=== PATIENT | female | born 1965 | race Hispanic/Latino ===

== ENCOUNTER 2017-06-26 08:25 | Outpatient (CLI) | payer BC ==
--- NOTE | 2017-06-26 14:24 | Mammography Report ---
BILATERAL DIGITAL SCREENING MAMMOGRAM WITH CAD:06/26/17 CLINICAL: Baseline screening. COMPARISON:None. FINDINGS: The breasts are heterogeneously dense, which may obscure small masses. Bilateral circumscribed masses are suggestive of cysts and require additional evaluation. A few bilateral benign calcifications.No architectural distortion or suspicious calcifications. IMPRESSION: Bilateral circumscribed masses requiring further workup. BI-RADS CATEGORY: 0 -- Needs Additional Imaging RECOMMENDATION: Bilateral global breast ultrasound. ACR BI-RADS MAMMOGRAPHIC CODES: 0 = Needs additional imaging evaluation; 1 = Negative; 2 = Benign; 3 = Probably benign; 4 = Suspicious; 5 = Malignant; 6 = Known biopsy-proven malignancy COMMENT: 1. Dense breast tissue, i.e., adenosis, fibrocystic changes, etc., may obscure an underlying neoplasm. 2. Approximately 10% of cancers are not detected with mammography. 3. A negative mammography report should not delay biopsy if a clinically suspicious mass is present.
== END 2017-06-26 08:26 | disposition home or self-care (01) ==
LOC: SPVWC 08:25
PROVIDERS: ATTEND Internal Medicine
DX: Z12.31 Encounter for screening mammogram for malignant neoplasm of breast (principal)
CPT/HCPCS: 77067; G0202

== ENCOUNTER 2017-07-03 12:52 | Outpatient (CLI) | payer BC ==
--- NOTE | 2017-07-03 15:30 | Ultrasound Report ---
BILATERAL BREAST ULTRASOUND: 07/03/17 12:52:00 CLINICAL: Recall to evaluate bilateral asymmetries. COMPARISON: 06/26/17 screening mammogram. FINDINGS: Ultrasound of the right breast(including all four quadrants and the retroareolar area) was performed and demonstrated several benign cysts. The largest is a 9 o'clock 5 cm from the nipple and measures 3.8 x 2.5 x 1.3 cm. A cyst at 12 o'clock near the areola measures 1.3 x 0.7 x 0.8 cm. A solid mass versus cyst with relatively large internal echoes at 12 o'clock 3 cm from the nipple measures 1.2 x 0.7 x 1.2 cm. It is oval and smooth with posterior enhancement. Several additional smaller cysts of the right breast. Ultrasound of the left breast (including all four quadrants and the retroareolar area) was performed and demonstrated several benign cysts and no solid mass. A cyst at 12 o'clock near the areola measures 2.0 x 0.6 x 1.5 cm. A retroareolar cyst at 12 o'clock measures 1.9 x 1.3 x 2.0 cm. A cyst at 1 o'clock 3 cm from the nipple measures 1.9 x 1.0 x 1.7 cm. IMPRESSION: 1. A solid right breast mass versus complex cyst at 12 o'clock 3 cm from the nipple. Recommend ultrasound guided aspiration and ultrasound guided needle core biopsy if the lesion cannot be aspirated. 2. Numerous bilateral benign cysts. BI-RADS 4A--Mildly Suspicious RECOMMENDATION: Ultrasound guided right cyst needle aspiration/biopsy.
== END 2017-07-03 12:53 | disposition home or self-care (01) ==
LOC: SPVWC 12:52
PROVIDERS: ATTEND Internal Medicine
DX: N60.01 Solitary cyst of right breast (principal); N60.02 Solitary cyst of left breast

== ENCOUNTER 2017-07-11 07:59 | Outpatient (CLI) | payer BC ==
--- NOTE | 2017-07-11 10:22 | Ultrasound Report ---
ULTRASOUND GUIDED ASPIRATION RIGHT BREAST: 07/11/17 CLINICAL: Complex cyst at 12 o'clock 3 cm from the nipple. COMPARISON: 07/03/17 FINDINGS: The procedure was explained to the patient and informed consent was obtained. Ultrasound demonstrated The skin was cleansed with Betadine and anesthetized with 1% lidocaine. A 20-gauge needle was introduced into the cyst with ultrasound guidance. Less than onecc of yellowish was removed and the cyst demonstrated complete collapse. Fluid was discarded and a specimen was sent to the lab. The patient tolerated the procedure well and there were no apparent complications. IMPRESSION: Uncomplicated ultrasound-guided aspiration of a benign right breast cyst. Recommend routine mammographic screening in one year. BIRADS 2 - - Benign
== END 2017-07-11 08:00 | disposition home or self-care (01) ==
LOC: SPVWC 07:59
PROVIDERS: ATTEND Internal Medicine
DX: N60.01 Solitary cyst of right breast (principal); Z88.0 Allergy status to penicillin; Z88.6 Allergy status to analgesic agent

== ENCOUNTER 2018-08-14 08:26 | Outpatient (CLI) | payer BC ==
--- NOTE | 2018-08-14 10:22 | Ultrasound Report ---
ABDOMINAL ULTRASOUND: 08/14/18 08:26:00 CLINICAL: Abdominal pain. FINDINGS: High-resolution ultrasound demonstrates a normal size liver with normal contour. Moderate diffuse increased echogenicity of the liver. No liver mass identified. Normal hepatic vasculature and inferior vena cava. The gallbladder is normally distended with no stones. The gallbladder wall measures 1.7 mm. Normal intrahepatic and extrahepatic bile ducts. The common bile duct measures 4.3 mm diameter. The pancreas is well imaged and normal. Normal abdominal aorta. A normal spleen measures 9.7 x 4.1 x 3.6 cm. Normal kidneys with normal echogenicity and normal non-dilated renal collecting systems and ureters. The right kidney measures 10.6 x 4.4 x 4.5 cm. The left kidney measures 10.2 x 4.2 x 3.6 cm. No renal mass or calculus. No ascites or mass. IMPRESSION: Increased liver echogenicity suggestive of hepatic steatosis. No cholelithiasis and no signs of acute cholecystitis or pancreatitis.
== END 2018-08-14 08:27 | disposition home or self-care (01) ==
LOC: SPVWC 08:26
PROVIDERS: ATTEND Internal Medicine
DX: R10.9 Unspecified abdominal pain (principal); R14.0 Abdominal distension (gaseous)
CPT/HCPCS: 76700

== ENCOUNTER 2019-07-07 08:58 | Outpatient (CLI) | payer BC ==
--- NOTE | 2019-07-07 11:38 | Ultrasound Report ---
BILATERAL DIGITAL DIAGNOSTIC MAMMOGRAM WITH CAD 07/07/2019 BILATERAL COMPLETE BREAST ULTRASOUND INDICATION: Right palpable breast lump. TECHNIQUE: Digital bilateral mammographic imaging was performed. Magnification views were obtained. This examination was interpreted with the benefit of Computer-Aided Detection (CAD) analysis. COMPARISON: 06/26/2017 mammogram and 07/03/2017 bilateral breast ultrasound. FINDINGS: Breast Density: The breasts are heterogeneously dense, which may obscure small masses. MAMMOGRAPHIC FINDINGS: A 3 cm oval partially circumscribed mass or cyst correlates with the palpable lump in the right breast. Additional bilateral partially circumscribed densities. A group of left upp er outer amorphous calcifications is more prominent than on the last mammogram. Magnification views o f the calcifications demonstrate layering in adjacent calcifications but no layering is demonstrated in the larger group. These calcifications are located approximately 6 cm from the nipple. ULTRASOUND FINDINGS: Complete sonographic evaluation of all 4 quadrants and retroareolar region was p erformed. Ultrasound of the right breast demonstrated a benign cyst with low-level internal echoes at 9:00 3 cm from the nipple. It measures 3.3 x 1.9 x 2.7 cm. A complex cyst at 12:00 4 cm from the nipple measures 5 x 3 x 4 mm. No solid mass or suspicious shadowing of the right breast. Ultrasound o f the left breast demonstrated a benign cyst at 9:00 2 cm from the nipple measuring 13 x 11 x 11 mm a nd complex subcentimeter cysts at 12:00 3 cm from the nipple and at 1:00 3 cm from the nipple. No eryn id mass or shadowing of the left breast. IMPRESSION: 1. A benign 3.3 cm right breast cyst at 1:00 3 cm from the nipple correlates with the palpable lump. No suspicious finding in the right breast. 2. Suspicious left upper outer breast calcifications. Recommend stereotactic biopsy. 3. A few benign cysts of the left breast. I discussed the findings and recommendation for a stereotactic biopsy of the left breast with the pat ient at the time of the exam. She desires to return for the stereotactic procedure. Follow up recommendation: Biopsy BI-RADS Category 4: Suspicious for Malignancy. A "normal" or negative report should not discourage follow up or biopsy of a clinically significant f inding. A written summary of these findings will be mailed to the patient. The patient will be entered into a mammography reporting system which will generate a reminder letter for the patient's next appointmen t at the appropriate interval. According to the [employer], yearly mammograms are recommended starting at age 40 and continuing as long as a woman is in good health. Breast MRI is recommended for women with an lee roximately 20-25% or greater lifetime risk of breast cancer, including women with a strong family his tory of breast or ovarian cancer and women who have been treated for Hodgkin's disease. Signer Name: León Nieves MD Signed: 07/07/2019 11:34 AM Workstation Name: [id number]
== END 2019-07-07 08:59 | disposition home or self-care (01) ==
LOC: SPVWC 08:58
PROVIDERS: ATTEND Internal Medicine
DX: N60.01 Solitary cyst of right breast (principal); N60.02 Solitary cyst of left breast
CPT/HCPCS: 77066